=== PATIENT | female | born 2005 | race Caucasian/White ===

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

== ENCOUNTER 2024-04-10 11:56 | Outpatient (CLI) | payer BC | END 2024-04-10 11:57 | disposition home or self-care (01) | LOC: ULT 11:56 | DX: R10.2 Pelvic and perineal pain (principal) | CPT/HCPCS: 76856 ==